=== PATIENT | male | born 1965 | race Hispanic/Latino ===

== ENCOUNTER 2024-06-05 08:57 | Emergency (ER) | payer MEDICARE, OTHER ==
[~2024-06-05] VITALS: Ht 188 cm; Wt 108.9 kg
[2024-06-05 09:04] VITALS: BP 149/93; PULSE 70; RESP 18; TEMP 98.9
[2024-06-05] MEDS ORDERED: INDO50CA98 PO (09:44)
[2024-06-05] MEDS ORDERED: HYDR-4060 PO (09:44)
--- NOTE | 2024-06-05 09:46 | ERN ---
General Chief Complaint: Knee Injury/Swelling Stated Complaint: LEFT KNEE GOUT FLARE UP Time Seen by MD: 09:03 History of Present Illness Initial Comments 58-year-old male, history of gout, presents for left knee swelling and pain. Patient reports he gets gout in both knees periodically. About 36 hours ago he developed some pain in the left knee now it is severe. There is some mild swelling. No erythema. No fevers or systemic symptoms. He is ambulatory with an antalgic gait. He has decreased range of motion due to pain. Denies alcohol abuse. Allergies: Coded Allergies: No Known Drug Allergies (Unverified Allergy, Unknown, 06/05/24) Home Meds Active Scripts Indomethacin (Indomethacin) 50 Mg Capsule, 1 CAP PO TID for arthritis for 3 Days, #10 CAP 0 Refills with food Prov:SOURAV RUVALCABA DO 06/05/24 Hydrocodone/Acetaminophen (Hydrocodon-Acetaminophen 5-325) 5 Mg-325 Mg Tablet, 1 TAB PO TID PRN for pain for 3 Days, #10 TAB 0 Refills Prov:SOURAV RUVALCABA DO 06/05/24 Past Medical History Past Medical History: Hypertension, Other Medical History Other: GOUT Past Surgical History: None ROS Dictation CONSTITUTIONAL: No chills, no fever, no weakness, no diaphoresis, no malaise. HEAD/FACE: No signs of trauma. EENT: No eye pain, no blurred vision, no tearing, no double vision, no ear pain, no ear discharge, no nose pain, no nasal congestion, no throat pain, no throat swelling, no mouth pain. RESPIRATORY: No cough, no orthopnea, no SOB, no stridor, no wheezing. CARDIOVASCULAR: No chest pain, no edema, no palpitations, no syncope. GASTROINTESTINAL/ABDOMINAL: No abdominal pain, no constipation, no diarrhea, no nausea, no vomiting. GENITOURINARY: No abnormal discharge, no dysuria, no frequent urination, no hematuria. No complaints of pain in the genitals. MUSCULOSKELETAL: Left knee pain and swelling INTEGUMENTARY: No change in color, no change in hair/nails, no dryness, no lesion, no lumps, no rash. NEUROLOGICAL/PSYCH: No anxiety, not depressed, no emotional problem, no headache, no numbness, no pre-existing deficit, no history of seizures, no tremors, no weakness. HEMATOLOGIC/LYMPHATIC: Not anemic, no history of blood clots, no apparent bleeding, no bruising, glands not swollen. All Systems Negative, Except as Noted. Physical Exam Physical Exam Dictation VITAL SIGNS: Reviewed. GENERAL APPEARANCE: Alert, oriented x3, no acute distress, obese. HEAD AND FACE: Non-traumatic. EYES: PERRL, pink conjunctivas, eyelid no trauma, anterior chamber clear. EARS: Pinnas intact and no signs of trauma or erythema. Ear canals clear and no discharge. TMs no erythema. NOSE: No discharge, no bleeding. OROPHARYNX: Mouth normal, teeth no caries, tongue pink. Pharynx clear, no erythema. Tonsils no exudates, no abscesses noted. Mucous membrane moist. NECK: Supple, non-tender, no thyromegaly, no masses, no JVD, no bruits. BREAST: Deferred. CHEST: No tenderness, no crepitus, no paradoxical movement, no retractions. LUNGS: Clear, well-ventilated, symmetric, no rales, no wheezing, no rhonchi, no stridor, good breath sounds bilaterally. HEART: Regular rate, regular rhythm, no murmur, no gallops. VASCULAR: No peripheral edema. ABDOMEN: Soft, positive bowel sounds, nondistended, no guarding, nontender, no rebound, no masses no hepatomegaly, no splenomegaly, no Black's sign, no hernias. RECTAL: Deferred. GENITAL: Deferred. NEUROLOGICAL: Normal speech, gross motor function intact, gross sensory function intact. MUSCULOSKELETAL: Left knee swelling, no erythema, decreased range of motion due to pain, ambulatory. Neurovascularly intact distally. EXTREMITIES: Nontender, full range of motion. SKIN: Color pink, dry, no turgor, no rash, no lacerations, no abrasions, no contusions. LYMPHATICS: Deferred. MDM CC: Left knee pain Historian: Patient Comorbidities: Obesity, gout Limitations by social determinants of health: None Vital signs are stable Differential diagnosis includes gout versus septic joint versus musculoskeletal injury. Patient denies trauma. Very low suspicion for septic joint, there is no erythema, he has low risk factors, he is ambulatory, Sharonda blood pressure on its joint. Patient's symptoms are consistent with gout. He has had this multiple times in the past. Given IM Toradol and p.o. Roosevelt here in the ER. We will discharge with p.o. Roosevelt and indomethacin and recommend PCP follow up as needed. Recommend dietary modification. Patient agrees with the plan. No imaging or studies indicated at this time. ED Course Orders Procedure Category Date Status Time Ketorolac PHA 06/05/24 In Process Tromethamine 30mg/Ml 10:00 Hydrocodone/Apap PHA 06/05/24 In Process 10/325 Tab (Roosevelt 10) 10:00 Current Medications Medications (Trade) Dose Ordered Sig/Hiral Route PRN Reason Start Time Stop Time Status Last Admin Dose Admin Acetaminophen/ Hydrocodone Bitart (NORco 10) 1 tab ONCE ONCE PO 06/05/24 10:00 06/05/24 10:01 06/05/24 09:50 Ketorolac Tromethamine (toRADol) 30 mg ONCE ONCE IM 06/05/24 10:00 06/05/24 10:01 06/05/24 09:50 Vital Signs Date Time Temp Pulse Resp B/P (MAP) Pulse Ox O2 Delivery O2 Flow Rate FiO2 06/05/24 09:04 99.0 70 18 149/93 97 Room Air 0 DX & DISP Disposition: Discharge Departure Impression: Primary Impression: Gout of left knee Condition: Stable Scripts Indomethacin (Indomethacin) 50 Mg Capsule 1 CAP PO TID for arthritis for 3 Days, #10 CAP 0 Refills with food Prov: SOURAV RUVALCABA DO 06/05/24 Hydrocodone/Acetaminophen (Hydrocodon-Acetaminophen 5-325) 5 Mg-325 Mg Tablet 1 TAB PO TID PRN for pain for 3 Days, #10 TAB 0 Refills Prov: SOURAV RUVALCABA DO 06/05/24 Additional Instructions: You are having a gout flare-up. You received IM Toradol and oral Roosevelt here in the ER. I have prescribed indomethacin. Take this 3 times per day for the next three days until your symptoms improve. I have also prescribed Roosevelt tabs. You can take this up to 3 times a day as needed for pain. Drink plenty of liquids. This will help flush the uric acid out of your body and reduce her symptoms. Avoid dehydration. Modify your diet. Avoid. Rich foods such as red meat, shellfish, and organ meats. Do not drink alcohol or sugary drinks. You can apply an Az wrap. You can ice your knee for 20 minutes twice per day. Rest and elevate as needed. Please follow up with her primary doctor in three days if you continue with symptoms. Return to the emergency department sooner if you have any concerns. SOURAV RUVALCABA DO Jun 05, 2024 09:46
[2024-06-05] MEDS: ketOROlac 30MG VIAL (30MG/ML) IM ONE (09:50)
[2024-06-05] MEDS: HYDROcodone/acetaMINOPHEN 10/325 MG TAB PO ONE (09:50)
== END 2024-06-05 10:30 | disposition home or self-care (01) ==
LOC: EDH 08:57
DX: M10.062 Idiopathic gout, left knee (principal); E66.9 Obesity, unspecified; I10 Essential (primary) hypertension; Z79.899 Other long term (current) drug therapy
CPT/HCPCS: 99283; 96372; J1885